=== PATIENT | female | born 1945 | race Caucasian/White ===

== ENCOUNTER → 2019-01-18 | Outpatient (REF) | payer MEDICARE, BC ==
[~2019-01-18] MED LIST: ACTOS30 MG PO; ADULT ASPIRIN E81 MG PO; AMBIEN5 MG OR; AMLODIPINE BESYL5 MG PO; AMOXICILLIN500 MG PO; ATENOLOL25 MG PO; ATENOLOL50 MG PO; AUGMENTIN875TAB PO; CEFTIN250 MG PO; CELEBREX100 M1 PO; CELEBREX100 MG PO; CELEBREX200 MG OR; CELEBREX200 MG PO; CIPRO500 MG OR; COUMADIN2.5 MG OR; COUMADIN2.5 MG PO; COUMADIN5 MG PO; DIFLUCAN100 MG PO; DIOVAN80 MG OR; DIOVAN80 MG PO; FLAGYL500 MG OR; GLYBURIDE5 MG PO; GLYNASE3 MG PO; HYDROCHLORO25 MG/TAB PO; LEVAQUIN500 MG OR; LIPITOR40 MG PO; LOTRIMIN AF FOR H1 % TOP; METFORMIN500 MG PO; MICRO-K10 ME1 PO; NEXIUM40 M1 OR; NEXIUM40 M1 PO; NEXIUM40 MG PO; NITROQUICK0.3 MG SL; PHENERGAN25 MG/TAB PO; POTASSIUM CHLO10 MEQ PO; PREDNISONE10 MG PO; ROBITUSSIN200 MG/10 PO; TENORMIN OR; TOUJEO SOL300 UNIT/M SC; TRAMADOL HCL50 MG PO; VICTOZA18 MG/3 ML SC; WARFARIN2.5 MG PO; XANAX0.25 MG PO; ZOFRAN ODT4 MG OR
[2019-01-18 16:29] LABS: HEMOGLOBIN 14.1 g/dl (12.0-16.0); IMMATURE GRANULOCYTES 0.5 % (0.0-5.0); MEAN CELL VOLUME 93.4 fL CALC (80.0-100.0); MEAN CORPUSCULAR HGB 29.3 pG CALC (26.0-32.0); MEAN CORPUSCULAR HGB CONC 31.3 g/L CALC (32.0-36.0); NEUT# 6.38 thou/uL (2.00-7.15); RED BLOOD COUNT 4.82 mill/uL (4.20-5.60); RED CELL DISTRI WIDTH 14.1 % (11.5-15.5)
[2019-01-18 16:41] LABS: ANION GAP 15 (6-22 (CALC)); BUN 19 mg/dL (8-23); BUN/CREATININE RATIO 36 (12-20 (CALC)); CARBON DIOXIDE 27 mmol/l (22-30); CHLORIDE 104 mmol/l (95-108); CPK 65 u/l (30-165); CREATININE 0.5 mg/dL (0.5-1.0); GFR > 60 ML/MIN (>=60 (CALC)); GFR FOR AFR.AMER. > 60 ML/MIN (>=60 (CALC)); POTASSIUM 4.5 mmol/l (3.5-5.1); SODIUM 142 mmol/l (137-146)
== END | disposition home or self-care (01) ==
LOC: LAB 15:57
PROVIDERS: ATTEND Internal Medicine
DX: J40 Bronchitis, not specified as acute or chronic (principal); R07.9 Chest pain, unspecified; E11.9 Type 2 diabetes mellitus without complications

== ENCOUNTER → 2019-02-03 | Outpatient (REF) | payer MEDICARE, BC | END | disposition home or self-care (01) | LOC: DI 15:39 | PROVIDERS: ATTEND Nurse Practitioner Family | DX: M79.641 Pain in right hand (principal) ==

== ENCOUNTER 2019-07-12 13:05 | Emergency (ER) | payer MEDICARE, BC ==
[~2019-07-12] VITALS: Ht 167.6 cm; Wt 104.5 kg
[2019-07-12] MEDS ORDERED: NOVOLOG100 UNIT/M SC (14:39)
[2019-07-12 14:47] LABS: HEMATOCRIT 46.2 % (37.0-47.0); HEMOGLOBIN 14.6 g/dl (12.0-16.0); IMMATURE GRANULOCYTES 0.7 % (0.0-5.0); MEAN CELL VOLUME 91.3 fL CALC (80.0-100.0); MEAN CORPUSCULAR HGB 28.9 pG CALC (26.0-32.0); MEAN CORPUSCULAR HGB CONC 31.6 g/L CALC (32.0-36.0); NEUT# 8.56 thou/uL (2.00-7.15); RED BLOOD COUNT 5.06 mill/uL (4.20-5.60); RED CELL DISTRI WIDTH 14.4 % (11.5-15.5)
[2019-07-12 14:52] LABS: ALBUMIN 4.6 g/dL (3.2-5.0); ALKALINE PHOSPHATASE 140 u/l (38-126); ANION GAP 15 (6-22 (CALC)); BILIRUBIN, TOTAL 0.6 mg/dL (0.0-1.4); BUN 18 mg/dL (8-23); BUN/CREATININE RATIO 31 (12-20 (CALC)); CARBON DIOXIDE 27 mmol/l (22-30); CHLORIDE 105 mmol/l (95-108); CREATININE 0.6 mg/dL (0.5-1.0); GFR > 60 ML/MIN (>=60 (CALC)); GFR FOR AFR.AMER. > 60 ML/MIN (>=60 (CALC)); LIPASE 67 u/l (23-300); POTASSIUM 4.6 mmol/l (3.5-5.1); SGOT/AST 63 u/l (9-36); SODIUM 142 mmol/l (137-146); TOTAL PROTEIN 7.8 g/dL (6.3-8.2)
[2019-07-12 18:21] LABS: URINE BLOOD DIPSTICK LARGE (NEGATIVE); URINE GLUCOSE - DIPSTICK 250 mg/dL (NEGATIVE); URINE KETONE NEGATIVE (NEGATIVE); URINE LEUK ESTERASE NEGATIVE (Negative); URINE NITRITE - DIPSTICK NEGATIVE (Negative); URINE PROTEIN - DIPSTICK 30 mg/dL (NEG-TRACE); URINE SPECIFIC GRAVITY >=1.030; URINE UROBILINOGEN - DIPSTICK 0.2 E.U./dL (0.2)
[2019-07-12 18:22] LABS: URINE CLARITY SL CLOUDY; URINE COLOR AMBER
[2019-07-12 18:23] LABS: URINE BILIRUBIN - DIPSTICK NEGATIVE (NEGATIVE)
[2019-07-12] MEDS ORDERED: PERCOCET 10/31 COMBO PO (18:29)
[2019-07-12] MEDS ORDERED: ONDANSETRON4 MG PO (18:29)
[2019-07-12] MEDS ORDERED: TAMSULOSIN0.4 MG PO (18:29)
[2019-07-12 18:30] LABS: URINE RBC >100 RBC/hpf (0-5); URINE SQUAMOUS EPITHELIAL CELL FEW EPI/hpf (0-FEW)
[2019-07-12 19:33] VITALS: BP 175/78
== END 2019-07-12 19:31 | disposition home or self-care (01) ==
LOC: ED 13:05
PROVIDERS: Emergency Medicine
DX: N13.2 Hydronephrosis with renal and ureteral calculous obstruction (principal); E11.9 Type 2 diabetes mellitus without complications; I10 Essential (primary) hypertension; Z86.711 Personal history of pulmonary embolism; Z79.4 Long term (current) use of insulin

== ENCOUNTER 2022-03-15 10:31 | Emergency (ER) | payer MEDICARE, BC ==
[~2022-03-15] VITALS: Ht 167.6 cm; Wt 115.0 kg
[~2022-03-15 10:31] MED LIST changes: +NOVOLOG100 UNIT/M SC; +ONDANSETRON4 MG PO; +PERCOCET 10/31 COMBO PO; +TAMSULOSIN0.4 MG PO
[2022-03-15 11:40] VITALS: BP 177/82
== END 2022-03-15 12:15 | disposition home or self-care (01) ==
LOC: ED 10:31
PROC: 0HQGXZZ Repair Left Hand Skin, External Approach (ICD-10-PCS; principal; 2022-03-15)
DX: S61.213A Laceration without foreign body of left middle finger without damage to nail, initial encounter (principal); I10 Essential (primary) hypertension; E11.9 Type 2 diabetes mellitus without complications; K21.9 Gastro-esophageal reflux disease without esophagitis; W27.1XXA Contact with garden tool, initial encounter; Y93.H2 Activity, gardening and landscaping; Y92.007 Garden or yard of unspecified non-institutional (private) residence as the place of occurrence of the external cause; Z79.01 Long term (current) use of anticoagulants; Z86.711 Personal history of pulmonary embolism

== ENCOUNTER 2022-05-12 13:36 | Observation (INO) | payer MEDICARE, BC ==
[~2022-05-12] VITALS: Ht 167.6 cm; Wt 114.0 kg
[~2022-05-12 13:36] MED LIST changes: +WARFARIN SODIU2.5 MG PO
[2022-05-12 13:42] VITALS: BP 186/91
[2022-05-12 13:58] LABS: HEMATOCRIT 46.6 % (37.0-47.0); HEMOGLOBIN 14.5 g/dl (12.0-16.0); IMMATURE GRANULOCYTES 0.7 % (0.0-5.0); MEAN CELL VOLUME 96.1 fL CALC (80.0-100.0); MEAN CORPUSCULAR HGB 29.9 pG CALC (26.0-32.0); MEAN CORPUSCULAR HGB CONC 31.1 g/dL CAL (32.0-36.0); NEUT# 9.48 thou/uL (2.00-7.15); RED BLOOD COUNT 4.85 mill/uL (4.20-5.60); RED CELL DISTRI WIDTH 14.3 % (11.5-15.5)
[2022-05-12 14:00] VITALS: BP 176/150
[2022-05-12 14:13] LABS: ALBUMIN 4.1 g/dL (3.2-5.0); ALKALINE PHOSPHATASE 83 u/l (38-126); ANION GAP 12 (6-22 (CALC)); BUN 26 mg/dL (8-23); BUN/CREATININE RATIO 44 (12-20 (CALC)); CARBON DIOXIDE 25 mmol/l (22-30); CHLORIDE 105 mmol/l (95-108); CREATININE 0.6 mg/dL (0.5-1.0); GFR FOR AFR.AMER. > 60 ML/MIN (>=60 (CALC)); GFR OTHER RACES > 60 ML/MIN (>=60 (CALC)); LIPASE 54 u/l (23-300); POTASSIUM 4.2 mmol/l (3.5-5.1); SGOT/AST 36 u/l (9-36); SODIUM 139 mmol/l (137-146); TOTAL PROTEIN 7.6 g/dL (6.3-8.2)
[2022-05-12 14:17] LABS: BILIRUBIN, TOTAL 0.5 mg/dL (0.0-1.4)
[2022-05-12 14:30] VITALS: BP 156/90
[2022-05-12 14:32] LABS: ACT PARTIAL THROMBO TIME 25.6 SECONDS (20.0-32.5); PROTHROMBIN TIME 19.7 SECONDS (9.0-12.5)
[2022-05-12 21:10] VITALS: BP 143/75
[2022-05-13] VITALS (9 sets, daily range): BP systolic 118–172; BP diastolic 49–76
[2022-05-13 05:29] LABS: HEMOGLOBIN 14.5 g/dl (12.0-16.0); IMMATURE GRANULOCYTES 0.6 % (0.0-5.0); MEAN CELL VOLUME 94.7 fL CALC (80.0-100.0); MEAN CORPUSCULAR HGB 29.8 pG CALC (26.0-32.0); MEAN CORPUSCULAR HGB CONC 31.5 g/dL CAL (32.0-36.0); NEUT# 14.4 thou/uL (2.00-7.15); RED BLOOD COUNT 4.86 mill/uL (4.20-5.60); RED CELL DISTRI WIDTH 14.2 % (11.5-15.5)
[2022-05-13 05:37] LABS: ALKALINE PHOSPHATASE 87 u/l (38-126); ANION GAP 12 (6-22 (CALC)); BILIRUBIN, TOTAL 0.3 mg/dL (0.0-1.4); BUN 24 mg/dL (8-23); BUN/CREATININE RATIO 54 (12-20 (CALC)); CARBON DIOXIDE 25 mmol/l (22-30); CHLORIDE 105 mmol/l (95-108); CREATININE 0.5 mg/dL (0.5-1.0); GFR FOR AFR.AMER. > 60 ML/MIN (>=60 (CALC)); GFR OTHER RACES > 60 ML/MIN (>=60 (CALC)); POTASSIUM 4.7 mmol/l (3.5-5.1); SGOT/AST 24 u/l (9-36); SODIUM 138 mmol/l (137-146); TOTAL PROTEIN 6.9 g/dL (6.3-8.2)
[2022-05-13 09:05] LABS: INTERNATIONAL NORMALIZED RATIO 2.1 RATIO (0.7-1.3); PROTHROMBIN TIME 20.8 SECONDS (9.0-12.5)
[2022-05-13] MEDS ORDERED: HUMULIN R500 UNIT/M SC ×3 (09:52→09:55)
[2022-05-13] MEDS ORDERED: DIOVAN80 MG PO (12:25)
[2022-05-13] MEDS ORDERED: WARFARIN3 MG PO (12:27)
[2022-05-14 00:12] VITALS: BP 125/57
[2022-05-14 04:58] VITALS: BP 142/65
[2022-05-14 05:29] LABS: HEMATOCRIT 43.4 % (37.0-47.0); HEMOGLOBIN 13.5 g/dl (12.0-16.0); IMMATURE GRANULOCYTES 0.7 % (0.0-5.0); MEAN CELL VOLUME 96.2 fL CALC (80.0-100.0); MEAN CORPUSCULAR HGB 29.9 pG CALC (26.0-32.0); MEAN CORPUSCULAR HGB CONC 31.1 g/dL CAL (32.0-36.0); NEUT# 17.96 thou/uL (2.00-7.15); RED BLOOD COUNT 4.51 mill/uL (4.20-5.60); RED CELL DISTRI WIDTH 14.4 % (11.5-15.5)
[2022-05-14 05:36] LABS: INTERNATIONAL NORMALIZED RATIO 2.4 RATIO (0.7-1.3); PROTHROMBIN TIME 23.8 SECONDS (9.0-12.5)
[2022-05-14 05:58] LABS: ALBUMIN 3.5 g/dL (3.2-5.0); ALKALINE PHOSPHATASE 88 u/l (38-126); ANION GAP 14 (6-22 (CALC)); BILIRUBIN, TOTAL 0.3 mg/dL (0.0-1.4); BUN 32 mg/dL (8-23); BUN/CREATININE RATIO 50 (12-20 (CALC)); CARBON DIOXIDE 21 mmol/l (22-30); CHLORIDE 105 mmol/l (95-108); CREATININE 0.6 mg/dL (0.5-1.0); GFR FOR AFR.AMER. > 60 ML/MIN (>=60 (CALC)); GFR OTHER RACES > 60 ML/MIN (>=60 (CALC)); MAGNESIUM 2.2 mg/dL (1.6-2.3); POTASSIUM 4.8 mmol/l (3.5-5.1); SGOT/AST 24 u/l (9-36); SODIUM 135 mmol/l (137-146); TOTAL PROTEIN 6.4 g/dL (6.3-8.2)
[2022-05-14 06:42] VITALS: BP 126/54
[2022-05-14 08:00] VITALS: BP 126/54
[2022-05-14 10:37] VITALS: BP 113/49
[2022-05-14] MEDS ORDERED: VIBRAMYCIN100 M2 PO (10:46)
[2022-05-14] MEDS ORDERED: IPRATROPIU0.5 MG/3 M IN (10:49)
[2022-05-14] MEDS ORDERED: PREDNISONE10 MG PO (10:55)
== END 2022-05-14 11:46 | disposition home or self-care (01) ==
LOC: ED 13:36 → MS2 16:24
PROVIDERS: Internal Medicine; Nurse Practitioner; ADMIT Internal Medicine; ATTEND Internal Medicine
DX: J45.901 Unspecified asthma with (acute) exacerbation (principal); I10 Essential (primary) hypertension; E11.9 Type 2 diabetes mellitus without complications; K21.9 Gastro-esophageal reflux disease without esophagitis; Z79.01 Long term (current) use of anticoagulants; Z86.711 Personal history of pulmonary embolism; Z79.4 Long term (current) use of insulin; Z95.828 Presence of other vascular implants and grafts; Z20.822 Contact with and (suspected) exposure to COVID-19
CPT/HCPCS: Q9967

== ENCOUNTER 2023-02-08 12:20 | Observation (INO) | payer MEDICARE, BC ==
[~2023-02-08] VITALS: Ht 167.6 cm; Wt 100.0 kg
[~2023-02-08 12:20] MED LIST changes: +HUMULIN R500 UNIT/M SC; +IPRATROPIU0.5 MG/3 M IN; +VIBRAMYCIN100 M2 PO; +WARFARIN3 MG PO
--- NOTE | 2023-02-08 12:50 | NUR ---
PT WHEELED BACK TO RM 9 FOR EVAL, CONNECTED TO MONITOR, AWARE
[2023-02-08 12:54] VITALS: BP 150/79
[2023-02-08 13:13] VITALS: BP 158/65
[2023-02-08 15:22] LABS: BASO% 0.6 % (0-3); EOS% 2.5 % (0-8); HEMATOCRIT 43.4 % (37.0-47.0); HEMOGLOBIN 13.1 g/dl (12.0-16.0); IMMATURE GRANULOCYTES 0.2 % (0.0-5.0); LYMPH% 33.4 % (15-41); MEAN CELL VOLUME 94.1 fL CALC (80.0-100.0); MEAN CORPUSCULAR HGB 28.4 pG CALC (26.0-32.0); MEAN CORPUSCULAR HGB CONC 30.2 g/dL CAL (32.0-36.0); MONO% 7.6 % (2-13); NEUT# 5.44 thou/uL (2.00-7.15); NEUT% 55.7 % (42-76); RED BLOOD COUNT 4.61 mill/uL (4.20-5.60); RED CELL DISTRI WIDTH 14.2 % (11.5-15.5)
[2023-02-08 15:34] LABS: ALBUMIN 4.2 g/dL (3.2-5.0); ALKALINE PHOSPHATASE 89 u/l (38-126); ANION GAP 11 (6-22 (CALC)); BILIRUBIN, TOTAL 0.3 mg/dL (0.02-1.3); BUN 16 mg/dL (8-23); BUN/CREATININE RATIO 26 (12-20 (CALC)); CARBON DIOXIDE 32 mmol/l (22-30); CHLORIDE 104 mmol/l (95-108); CREATININE 0.6 mg/dL (0.5-1.0); GFR FOR AFR.AMER. > 60 ML/MIN (>=60 (CALC)); GFR OTHER RACES > 60 ML/MIN (>=60 (CALC)); POTASSIUM 4.1 mmol/l (3.5-5.1); SGOT/AST 43 u/l (9-36); SODIUM 142 mmol/l (137-146); TOTAL PROTEIN 7.2 g/dL (6.3-8.2)
[2023-02-08 18:10] LABS: INTERNATIONAL NORMALIZED RATIO 2.2 RATIO (0.7-1.3); PROTHROMBIN TIME 21.3 SECONDS (9.0-12.5)
--- NOTE | 2023-02-08 18:31 | NUR ---
HELD INSULIN CBG IS 100
[2023-02-08 19:47] VITALS: BP 181/133
[2023-02-08 20:00] VITALS: BP 148/70; BP 166/70
[2023-02-08 20:15] VITALS: BP 162/72
[2023-02-08 20:30] VITALS: BP 163/74
--- NOTE | 2023-02-08 20:37 | NUR ---
Admission Note Report Given to: HANNAH RN Transported by: Stretcher Transported with: Nurse Patent IV Location: [facility] [place] ROOM [id number]
--- NOTE | 2023-02-08 20:50 | NUR ---
TO FLOOR VIA STRETCHER WITH NSG SPEECH PATHOLOGIST
--- NOTE | 2023-02-08 21:00 | NUR ---
PT ARRIVE TO FLOOR VIA STRETCHER ACCOMPANIED BY ER STAFF. PT A&OX3 ABLE ABLE TO COMMUNICATED NEEDS KNOW. DAUGTHER AT BEDSIDE. PT HAS A IV TO LAC PATENT AND FLUSHES WELL. REDNESS TO LEFT FOOT. PT IS AT ROOM AIR. ADMISSION COMPLETED. CALL LIGHT IN REACH AND BED IN LOWEST POSITION.
[2023-02-08] MEDS ORDERED: PERCOCET 5/321 COMBO PO (21:06)
[2023-02-08] MEDS ORDERED: WARFARIN5 MG PO (21:53)
[2023-02-09] VITALS (8 sets, daily range): BP systolic 125–161; BP diastolic 44–69
--- NOTE | 2023-02-09 00:28 | NUR ---
PT IN AWAKE RESTING IN BED. PT REPORT PAIN. MEDICATED PER MAR. NO OTHER NEEDS OR CONCERN VOICED. CALL IGHT IN REACH AND BED IN LOWEST POSITION.
--- NOTE | 2023-02-09 04:40 | NUR ---
PT IN BED AWAKE DENIES PAIN OR DISCOMFORT. LAB AT BEDSIDE. NO S/S OF DISTRESS NOTED. CALL LIGHT IN REACH AND BED IN LOWEST POSITION.
[2023-02-09 05:29] LABS: BASO% 0.5 % (0-3); EOS% 3.3 % (0-8); HEMATOCRIT 40.1 % (37.0-47.0); HEMOGLOBIN 12.5 g/dl (12.0-16.0); IMMATURE GRANULOCYTES 0.2 % (0.0-5.0); LYMPH% 30.6 % (15-41); MEAN CELL VOLUME 94.4 fL CALC (80.0-100.0); MEAN CORPUSCULAR HGB 29.4 pG CALC (26.0-32.0); MEAN CORPUSCULAR HGB CONC 31.2 g/dL CAL (32.0-36.0); MONO% 8.3 % (2-13); NEUT# 5.3 thou/uL (2.00-7.15); NEUT% 57.1 % (42-76); RED BLOOD COUNT 4.25 mill/uL (4.20-5.60); RED CELL DISTRI WIDTH 14.1 % (11.5-15.5)
[2023-02-09 05:46] LABS: ALBUMIN 3.5 g/dL (3.2-5.0); ALKALINE PHOSPHATASE 92 u/l (38-126); ANION GAP 11 (6-22 (CALC)); BUN 15 mg/dL (8-23); BUN/CREATININE RATIO 26 (12-20 (CALC)); CARBON DIOXIDE 28 mmol/l (22-30); CHLORIDE 104 mmol/l (95-108); CREATININE 0.6 mg/dL (0.5-1.0); GFR FOR AFR.AMER. > 60 ML/MIN (>=60 (CALC)); GFR OTHER RACES > 60 ML/MIN (>=60 (CALC)); POTASSIUM 4.4 mmol/l (3.5-5.1); SGOT/AST 34 u/l (9-36); SODIUM 139 mmol/l (137-146)
[2023-02-09 05:54] LABS: INTERNATIONAL NORMALIZED RATIO 2.2 RATIO (0.7-1.3); PROTHROMBIN TIME 20.8 SECONDS (9.0-12.5)
[2023-02-09 06:03] LABS: BILIRUBIN, TOTAL 0.5 mg/dL (0.02-1.3)
--- NOTE | 2023-02-09 08:00 | NUR ---
PT LAYING IN BED RESTING, AWAKENED TO VOICE. PT IS ALERT AND ORIENTED. PT C/O SOME ABD TENDERNESS WHEN PALPATING ABD, DENIES NAUSEA LAST BM YESTERDAY. IV SITE TO LAC, INTACT AND CLEAN. PT HAS CALL LIGHT WITHIN REACH AND ALL SAFETY MEAUSRES IN PLACE
--- NOTE | 2023-02-09 12:00 | NUR ---
PT SITTING UP IN CHAIR EATING LUNCH AWAKE AND ALERT. PT HAS NO C/O PAIN. NO CHANGE IN STATUS AT THIS TIME.
--- NOTE | 2023-02-09 15:46 | NUR ---
VANCOMYCIN 1.25 GRAMS STARTED FOR FOOT INFECTION CRCL 80-120ML/MIN PT WEIGHT 100KG TROUGH DUE 02/09/23 @1730 HOLD DOSE IF TROUGH GREATER THAN 19
--- NOTE | 2023-02-09 16:00 | NUR ---
PT LAYING IN BED RESTING WITH EYES CLOSED. NO CHANGE IN STATUS AT THIS TIME.
--- NOTE | 2023-02-09 20:13 | NUR ---
PT IN WHEELCHAIR ON HER PHONE BREATING IS EVEN AND UNLABORED. NO S/S OF DISTRESS NOTED. DENIES PAIN OR DISCOMFORT. ASSESMENT COMPLETED. CALL LIGHT IN REACH.
[2023-02-10] VITALS (7 sets, daily range): BP systolic 128–175; BP diastolic 36–52
--- NOTE | 2023-02-10 00:55 | NUR ---
PT IN BED RESTING WITH EYES CLOSED BREATHING EVEN AND UNLABORED. NO S/S OF DISTRESS NOTED. BPAP ON. PT AWAKEN FOR IV ATIBIOTICS. NO NEEDS OR CONCERN VOICED. CALL LIGHT IN REACH AND BED IN LOWEST POSITION.
--- NOTE | 2023-02-10 04:25 | NUR ---
PT IN BED RESTING WITH EYES CLSOED BREATHING EVEN AND UNABORED. NO S/S OF DISTRESS NOTED. CALL LIGHT BED IN LOWEST POSITION.
[2023-02-10 09:56] LABS: PROTHROMBIN TIME 19.4 SECONDS (9.0-12.5)
--- NOTE | 2023-02-10 11:15 | NUR ---
S: JANNET ASCENCIO is a 77 F who presents with SSTI She has a history of GERD, T2DM, HTN, OA, diverticulosis, and hx of coagulopathy with PE. All medications in patient's chart were reviewed. O: VS: BP 146/52, P 63, RR 18,T 97.3 W 100 kg, HT 66 in, Scr= 0.6 ,CrCl= 54.4 ml/min Trough on 02/09/23: 17 ug/ml. A: Blood culture pending. P: Patient is on Zosyn 3.375 g IV q6hrs. Vancomycin ordered for pharmacy to dose. Start reduced Vancomycin 1g IV Q8H. Vancomycin trough is drawn before the 4th dose on 02/11/23 at 0930. Vancomycin goal trough is between 10-15 mcg/ml. Pharmacy will follow and or advise on antibiotics use as needed.
--- NOTE | 2023-02-10 12:00 | NUR ---
PT RESTING IN BED. NO COMPLAINTS/DISTRESS AT THIS TIME. WILL CONTINUE TO MONITOR.
--- NOTE | 2023-02-10 16:00 | NUR ---
PT RESTING IN BED. NO COMPLAINTS/DISTRESS AT THIS TIME. WILL CONTINUE TO MONITOR.
--- NOTE | 2023-02-10 16:17 | NUR ---
VANCOMYCIN WAS RESCHEDULED. NEW TROUGH TO BE DRAWN 02/11/22 @ 1438
--- NOTE | 2023-02-11 | NUR ---
PATIENT RESTING IN BED WIHT OWN C-PAP IN PLACE. VANCO INFUSING VIA LAC SITE. CALL LIGHT IN REACH. WILL CONT TO MONITOR.
--- NOTE | 2023-02-11 00:58 | NUR ---
PATIENT IS SITTING UP IN CHAIR WITH LLE ELEVATED. FOOT IS RED AND PAINFUL PER PATIENT. STATES THAT IT IS SOMEWHAT IMPROVED-SWELLING IS DOWN. STATES THAT SHE HAD LEFT ANKLE SURGERY DONE LAST MONTH-STILL WITH SMALL SCABBED AREA TO BACK OF HER LEFT AND ANKLE. PATIENT STATES THAT SHE IS BASICALLY W/C BOUND AT THIS TIME BECAUSE IT IS TOO PAINFUL TO TRY TO GET UP TO AMBULATE. LUNGS ARE CLEAR. ABD IS SOFT WITH ACTIVE BS. STATES THAT SHE DID HAVE A COUPLE OF LOOSE STOOLS TODAY. DENIES ANY DIFFICULTY WITH URINATION. SALINE LOCK TO LEFT AC INTACT AND HEALTHY AT THIS TIME. MEDICATED FOR LEFT FOOT AND ANKLE PAIN WITH LORTAB ORDERED FOR PAIN. SAFETY PRECAUTIONS REINFORCED. CALL LIGHT IN REACH. WILL CONT TO MONITOR.
[2023-02-11 03:45] VITALS: BP 152/65
--- NOTE | 2023-02-11 04:16 | NUR ---
PATIENT RESTING IN BED WITH OWN C-PAP IN PLACE AND EYS CLOSED. RESPS ARE EVEN AND UNLABORED. LLE IS ELEVATED ON PILLOWS. CALL LIGHT IN REACH. WILL CONT TO MONITOR.
[2023-02-11 05:40] LABS: BASO% 0.4 % (0-3); EOS% 3.2 % (0-8); HEMATOCRIT 38.5 % (37.0-47.0); HEMOGLOBIN 11.8 g/dl (12.0-16.0); IMMATURE GRANULOCYTES 0.3 % (0.0-5.0); MEAN CELL VOLUME 94.4 fL CALC (80.0-100.0); MEAN CORPUSCULAR HGB 28.9 pG CALC (26.0-32.0); MEAN CORPUSCULAR HGB CONC 30.6 g/dL CAL (32.0-36.0); MONO% 8.3 % (2-13); NEUT# 5.62 thou/uL (2.00-7.15); NEUT% 55.8 % (42-76); RED BLOOD COUNT 4.08 mill/uL (4.20-5.60); RED CELL DISTRI WIDTH 14.3 % (11.5-15.5)
[2023-02-11 05:50] VITALS: BP 161/60
[2023-02-11 06:01] LABS: ALBUMIN 3.5 g/dL (3.2-5.0); ALKALINE PHOSPHATASE 80 u/l (38-126); ANION GAP 11 (6-22 (CALC)); BUN 12 mg/dL (8-23); BUN/CREATININE RATIO 18 (12-20 (CALC)); CARBON DIOXIDE 29 mmol/l (22-30); CHLORIDE 106 mmol/l (95-108); CREATININE 0.7 mg/dL (0.5-1.0); GFR FOR AFR.AMER. > 60 ML/MIN (>=60 (CALC)); GFR OTHER RACES > 60 ML/MIN (>=60 (CALC)); POTASSIUM 3.9 mmol/l (3.5-5.1); SGOT/AST 32 u/l (9-36); SODIUM 142 mmol/l (137-146); TOTAL PROTEIN 6.1 g/dL (6.3-8.2)
[2023-02-11 06:06] LABS: BILIRUBIN, TOTAL 0.2 mg/dL (0.02-1.3)
[2023-02-11 06:10] LABS: INTERNATIONAL NORMALIZED RATIO 2.4 RATIO (0.7-1.3); PROTHROMBIN TIME 23.4 SECONDS (9.0-12.5)
[2023-02-11 06:55] VITALS: BP 161/60
[2023-02-11 09:10] LABS: INTERNATIONAL NORMALIZED RATIO 2.7 RATIO (0.7-1.3)
[2023-02-11] MEDS ORDERED: PREDNISONE10 MG PO (14:39)
[2023-02-11] MEDS ORDERED: AMOX/K CLAV875 M1 PO (14:40)
[2023-02-11] MEDS ORDERED: DOXYCYCLINE100 MG PO (14:42)
== END 2023-02-11 15:31 | disposition home or self-care (01) ==
LOC: ED 12:20 → ED-I 16:39 → ED 18:01 → MS2 18:02
PROVIDERS: Family Medicine; Nurse Practitioner Family; ADMIT Internal Medicine; ATTEND Internal Medicine
DX: T81.41XA Infection following a procedure, superficial incisional surgical site, initial encounter (principal); L03.116 Cellulitis of left lower limb; M76.62 Achilles tendinitis, left leg; I10 Essential (primary) hypertension; E11.9 Type 2 diabetes mellitus without complications; K21.9 Gastro-esophageal reflux disease without esophagitis; Y83.8 Other surgical procedures as the cause of abnormal reaction of the patient, or of later complication, without mention of misadventure at the time of the procedure; Z79.01 Long term (current) use of anticoagulants; Z79.4 Long term (current) use of insulin; Z98.890 Other specified postprocedural states; Z86.711 Personal history of pulmonary embolism; Z95.828 Presence of other vascular implants and grafts
CPT/HCPCS: J3370